=== PATIENT | female | born 1990 | race Caucasian/White ===

== ENCOUNTER 2018-05-07 05:54 | Emergency (ER) | payer SELFPAY ==
[~2018-05-07] VITALS: Ht 157.5 cm; Wt 67.4 kg
[2018-05-07 06:02] VITALS: BP 122/78; TEMP 97.4
[2018-05-07] MEDS ORDERED: CEPHALEXIN500 M1 PO (06:31)
[2018-05-07] MEDS ORDERED: AKTOB 5 ML5 ML OD (06:31)
[2018-05-07 06:58] VITALS: PULSE 79
== END 2018-05-07 06:58 | disposition home or self-care (01) ==
LOC: COL.ER 05:54
DX: H00.023 Hordeolum internum right eye, unspecified eyelid (principal)

== ENCOUNTER 2018-10-10 18:16 | Emergency (ER) | payer OTHER ==
[~2018-10-10] VITALS: Ht 165.1 cm; Wt 68.2 kg
[~2018-10-10 18:16] MED LIST: AKTOB 5 ML5 ML OD; CEPHALEXIN500 M1 PO
[2018-10-10 18:31] VITALS: BP 159/87; TEMP 97.8
[2018-10-10 19:50] VITALS: PULSE 73
== END 2018-10-10 19:52 | disposition home or self-care (01) ==
LOC: COL.ER 18:16
DX: S61.211A Laceration without foreign body of left index finger without damage to nail, initial encounter (principal); Z23 Encounter for immunization; W26.0XXA Contact with knife, initial encounter; Y92.009 Unspecified place in unspecified non-institutional (private) residence as the place of occurrence of the external cause